=== PATIENT | male | born 1950 | race Caucasian/White ===

== ENCOUNTER → 2017-12-09 | Outpatient (CLI) | payer MEDICARE ==
[~2017-12-09] MED LIST: ACIPHEX20 MG PO; ALBUTEROL2.5 MG/0.5 IH; LISINOPRIL20 MG PO; NASACORT AQ16.5 GM NS; PRAVACHOL80 MG PO; SPIRIVA1 INHALATI IH; SYNTHROID88 MCG PO; VIAGRA50 MG PO
== END | disposition home or self-care (01) ==
LOC: CDC 08:54
DX: Z01.810 Encounter for preprocedural cardiovascular examination (principal); N43.3 Hydrocele, unspecified
CPT/HCPCS: 93000